=== PATIENT | male | born 1940 | race Caucasian/White ===

== ENCOUNTER → 2017-01-01 | Outpatient (CLI) | payer MEDICARE, BC ==
--- NOTE | 2017-01-01 17:13 | XR ---
EXAMINATION TYPE: XR chest 2V DATE OF EXAM: 01/01/2017 HISTORY: MRI Clearance. REFERENCE: Previous study dated 03/01/2015. FINDINGS: There has been a previous midline sternotomy. The patient's pleural effusion has resolved. Heart size upper limits of normal. There is mild vascula r congestion. There is mild interstitial change. At least part of this is chronic. IMPRESSION: 1. BORDERLINE CARDIOMEGALY. 2. MILD VASCULAR CONGESTION. 3. INTERSTITIAL CHANGE. PART OF THIS IS CHRONIC. I COULD NOT EXCLUDE MILD HEART FAILURE. PLEASE CORRE LATE CLINICALLY.
== END | disposition home or self-care (01) ==
LOC: RADXRMAIN 16:49
PROVIDERS: ATTEND Orthopaedic Surgery
DX: Z01.818 Encounter for other preprocedural examination (principal); I51.7 Cardiomegaly; E11.42 Type 2 diabetes mellitus with diabetic polyneuropathy; J84.9 Interstitial pulmonary disease, unspecified; M79.672 Pain in left foot; M10.9 Gout, unspecified; M21.6X2 Other acquired deformities of left foot; G57.92 Unspecified mononeuropathy of left lower limb; R07.89 Other chest pain; Z98.890 Other specified postprocedural states
CPT/HCPCS: 71020

== ENCOUNTER → 2017-01-07 | Outpatient (CLI) | payer MEDICARE, BC ==
[2017-01-07 09:21] LABS: CH 26.6; CHCM 28.7; HCT 30.7 % (39.0-53.0); HGB 8.9 gm/dL (13.0-17.5); Hypochromasia Marked; MCH 27.1 pg (25.0-35.0); MCHC 29.1 g/dL (31.0-37.0); MCV 93.1 fL (80.0-100.0); Mean Platelet Volume 7.8; Poikilocytosis Slight; RDW 15.2 % (11.5-15.5); WBC 4.3 k/uL (3.8-10.6)
[2017-01-07 10:03] LABS: Anion Gap 15 mmol/L; Blood Urea Nitrogen 21 mg/dL (9-20); Carbon Dioxide 26 mmol/L (22-30); Chloride 103 mmol/L (98-107); Non-African American GFR(MDRD) >60 (>60 ml/min/1.73 sqM); Potassium 4.4 mmol/L (3.5-5.1); Sodium 144 mmol/L (137-145)
== END | disposition home or self-care (01) ==
LOC: LABPAT 08:50
PROVIDERS: ATTEND Internal Medicine Interventional Cardiology
DX: Z01.812 Encounter for preprocedural laboratory examination (principal); I35.0 Nonrheumatic aortic (valve) stenosis
CPT/HCPCS: 36415; 80051; 82565; 84520; 85027

== ENCOUNTER → 2017-05-19 | Outpatient (CLI) | payer MEDICARE, BC ==
[2017-05-19 12:22] LABS: Anion Gap 16 mmol/L; Blood Urea Nitrogen 22 mg/dL (9-20); Calcium 9.9 mg/dL (8.4-10.2); Carbon Dioxide 27 mmol/L (22-30); Chloride 101 mmol/L (98-107); Glucose 181 mg/dL (74-99); Potassium 4.4 mmol/L (3.5-5.1); Sodium 144 mmol/L (137-145)
[2017-05-19 12:27] LABS: Anisocytosis Slight; Basophils % (A) 1 %; Eosinophils # (A) 0.2 k/uL (0-0.7); Eosinophils % (A) 4 %; HCT 34.5 % (39.0-53.0); Hypochromasia Slight; Lymphocytes # (A) 0.5 k/uL (1.0-4.8); Lymphocytes % (A) 15 %; MCH 30.2 pg (25.0-35.0); MCHC 31.9 g/dL (31.0-37.0); MCV 94.8 fL (80.0-100.0); Macrocytosis Slight; Mean Platelet Volume 7.6; Monocytes # (A) 0.2 k/uL (0-1.0); Monocytes % (A) 6 %; Neutrophils # (A) 2.7 k/uL (1.3-7.7); Neutrophils % (A) 73 %; RBC 3.64 m/uL (4.30-5.90); RDW 19.4 % (11.5-15.5); WBC 3.7 k/uL (3.8-10.6)
[2017-05-19 14:38] LABS: Platelet Count 82 k/uL (150-450)
[2017-05-19 14:40] LABS: Mixed Population RBC Present; Polychromasia Present
[2017-05-19 14:41] LABS: Poikilocytosis (M) Present
[2017-05-19 14:42] LABS: RBC Fragments Present
== END | disposition home or self-care (01) ==
LOC: LABWHC1 11:24
PROVIDERS: ATTEND Internal Medicine Cardiovascular Disease
DX: I34.0 Nonrheumatic mitral (valve) insufficiency (principal)
CPT/HCPCS: 36415; 80048; 83880; 85025

== ENCOUNTER → 2017-07-07 | Outpatient (CLI) | payer MEDICARE, BC ==
[2017-07-07 12:58] LABS: Appearance,Urine Clear (Clear); Bilirubin,Urine Negative (Negative); Blood,Urine Negative (Negative); Color,Urine Yellow; Glucose,Urine (UA) Negative (Negative); Hyaline Casts,Urine 1 /lpf (0-2); Ketones,Urine Negative (Negative); Leukocyte Esterase,Urine Negative (Negative); Mucus,Urine Rare /hpf; Nitrite,Urine Negative (Negative); PH, Urine 6.5 (5.0-8.0); Protein,Urine 1+ (Negative); RBC,Urine 3 /hpf (0-5); Specific Gravity,Urine 1.021 (1.001-1.035); WBC,Urine 1 /hpf (0-5)
[2017-07-07 13:00] LABS: INR 3.3 (<1.2); Prothrombin Time 29.3 sec (9.0-12.0)
[2017-07-07 13:03] LABS: Basophils % (A) 1 %; Eosinophils # (A) 0.2 k/uL (0-0.7); Eosinophils % (A) 4 %; HCT 33.1 % (39.0-53.0); HGB 10.7 gm/dL (13.0-17.5); Hypochromasia Slight; Lymphocytes # (A) 0.5 k/uL (1.0-4.8); Lymphocytes % (A) 14 %; MCH 31.5 pg (25.0-35.0); MCHC 32.2 g/dL (31.0-37.0); MCV 97.8 fL (80.0-100.0); Mean Platelet Volume 8.1; Monocytes # (A) 0.3 k/uL (0-1.0); Monocytes % (A) 7 %; Neutrophils # (A) 2.9 k/uL (1.3-7.7); Neutrophils % (A) 73 %; RBC 3.38 m/uL (4.30-5.90); RDW 15.3 % (11.5-15.5)
[2017-07-07 13:10] LABS: Albumin 4.1 g/dL (3.5-5.0); Chloride 102 mmol/L (98-107); Glucose 133 mg/dL (74-99); Potassium 4.5 mmol/L (3.5-5.1); Sodium 146 mmol/L (137-145)
[2017-07-07 13:11] LABS: AST 29 U/L (17-59); Alkaline Phosphatase 74 U/L (38-126); Anion Gap 15 mmol/L; Blood Urea Nitrogen 18 mg/dL (9-20); Calcium 10.1 mg/dL (8.4-10.2); Carbon Dioxide 29 mmol/L (22-30); Magnesium 1.9 mg/dL (1.6-2.3); Total Bilirubin 0.9 mg/dL (0.2-1.3)
[2017-07-07 13:24] LABS: Platelet Count 85 k/uL (150-450)
[2017-07-07 13:39] LABS: ALT 39 U/L (21-72)
== END | disposition home or self-care (01) ==
LOC: LABWHC1 12:18
PROVIDERS: ATTEND Internal Medicine Cardiovascular Disease
DX: I05.9 Rheumatic mitral valve disease, unspecified (principal); I50.9 Heart failure, unspecified
CPT/HCPCS: 36415; 80053; 81001; 83735; 83880; 85025; 85610

== ENCOUNTER → 2017-08-14 | Outpatient (CLI) | payer MEDICARE, BC ==
[2017-08-14 15:30] LABS: Basophils % (A) 0 %; Eosinophils # (A) 0.1 k/uL (0-0.7); Eosinophils % (A) 2 %; HCT 34.3 % (39.0-53.0); HGB 10.7 gm/dL (13.0-17.5); Hypochromasia Marked; Lymphocytes # (A) 0.6 k/uL (1.0-4.8); Lymphocytes % (A) 10 %; MCH 30.5 pg (25.0-35.0); MCHC 31.2 g/dL (31.0-37.0); MCV 97.8 fL (80.0-100.0); Mean Platelet Volume 7.2; Monocytes # (A) 0.4 k/uL (0-1.0); Monocytes % (A) 6 %; Neutrophils # (A) 4.4 k/uL (1.3-7.7); Neutrophils % (A) 79 %; Platelet Count 107 k/uL (150-450); RDW 14.8 % (11.5-15.5); WBC 5.5 k/uL (3.8-10.6)
[2017-08-14 15:37] LABS: Calcium 9.5 mg/dL (8.4-10.2); Potassium 4.6 mmol/L (3.5-5.1)
== END | disposition home or self-care (01) ==
LOC: LABWHC1 14:51
PROVIDERS: ATTEND Internal Medicine Cardiovascular Disease
DX: I50.33 Acute on chronic diastolic (congestive) heart failure (principal)
CPT/HCPCS: 36415; 80048; 83880; 85025

== ENCOUNTER 2017-09-05 21:32 | Emergency (ER) | payer MEDICARE, BC ==
[2017-09-05 21:39] VITALS: TEMP 98.1
[2017-09-05] MEDS ORDERED: PANTOPRAZOLE 40 MG/10 ML VIAL IVP STA (21:53)
[2017-09-05] MEDS ORDERED: cefTRIAXone IN SWFI 1,000 MG/10 ML SYRINGE IVP STA (21:55)
--- NOTE | 2017-09-05 22:00 | ED ---
General Adult HPI - General Chief complaint: GI Bleed Stated complaint: Rectal Bleeding Time Seen by Provider: 09/05/17 21:44 Source: patient, RN notes reviewed, old records reviewed Mode of arrival: ambulatory Limitations: no limitations - History of Present Illness Initial comments: 77-year-old male presents with bright red rectal bleeding. Bleeding began this evening patient has had several episodes of bright red blood with bowel movements. Patient has a known history of esophageal varices with banding 3 days prior at [facility]. He was instructed to present to the emergency department with any rectal bleeding. Patient denies any complaints, no lightheadedness, no chest pain, no abdominal pain. He does have abdominal ascites and distention. He receives intermittent paracentesis this. He was previously on Coumadin for history of A. fib, however this has been discontinued secondary to procedure and concern for bleeding. Patient has mitral valve disease status post clipping at [facility]. He is currently being worked up for liver disease. No history of alcoholism. No history of fever. - Related Data Home Medications Medication Instructions Recorded Confirmed Aspirin 81 mg PO DAILY 03/27/14 03/19/17 Multivitamins, Thera [Multivitamin 1 each PO DAILY 03/27/14 03/19/17 (formulary)] Beclomethasone Dip 80 Mcg/Puff 1 puff INHALATION HS 01/19/17 03/19/17 [Qvar 80 mcg] Doxazosin [Cardura] 2 mg PO HS 01/19/17 03/19/17 Losartan [Cozaar] 50 mg PO HS 01/19/17 03/19/17 Metoprolol Tartrate [Lopressor] 25 mg PO BID 01/19/17 03/19/17 Warfarin [Coumadin] 3 mg PO MOTHSA 01/19/17 03/19/17 Warfarin [Coumadin] 4.5 mg PO SUTUWEFR 01/19/17 03/19/17 metFORMIN HCL [Glucophage] 1,000 mg PO BID 03/17/17 03/19/17 sitaGLIPtin [Januvia] 100 mg PO DAILY 03/17/17 03/19/17 Previous Rx's Medication Instructions Recorded Atorvastatin [Lipitor] 40 mg PO HS #30 tab 05/08/14 Furosemide [Lasix] 40 mg PO DAILY #20 tab 05/08/14 Allergies Allergy/AdvReac Type Severity Reaction Status Date / Time Iodinated Contrast- Oral and Allergy topical Verified 09/05/17 21:39 IV Dye iodine [Iodinated Contrast Media - made his IV Dye] hands break out adhesive AdvReac "skin Verified 09/05/17 21:39 comes off" Review of Systems ROS Statement: Those systems with pertinent positive or pertinent negative responses have been documented in the HPI. ROS Other: All systems not noted in ROS Statement are negative. Past Medical History Past Medical History: Atrial Fibrillation, Cancer, Diabetes Mellitus, GERD/ Reflux, Hypertension, Myocardial Infarction ([place]), Osteoarthritis (OA), Pneumonia , Skin Disorder Additional Past Medical History / Comment(s): melanoma skin cancer, Last Myocardial Infarction Date:: 03/23/14 History of Any Multi-Drug Resistant Organisms: None Reported Past Surgical History: Coronary Bypass/CABG, Heart Catheterization, Hernia Repair, Orthopedic Surgery, Tonsillectomy Additional Past Surgical History / Comment(s): raquel cataracts, left shoulder surgery, surgery to "correct hernia surgery" at [facility] Past Anesthesia/Blood Transfusion Reactions: No Reported Reaction Past Psychological History: No Psychological Hx Reported Smoking Status: Former smoker Past Alcohol Use History: None Reported Past Drug Use History: None Reported - Past Family History Mother Family Medical History: Cancer Daughter(s) Family Medical History: Cancer Father Family Medical History: Myocardial Infarction ([place]) General Exam Limitations: no limitations General appearance: alert, in no apparent distress Head exam: Present: atraumatic, normocephalic Eye exam: Present: normal appearance, PERRL, scleral icterus (mild) Neck exam: Present: normal inspection. Absent: tenderness, meningismus Respiratory exam: Present: normal lung sounds bilaterally. Absent: respiratory distress Cardiovascular Exam: Present: regular rate, irregular rhythm GI/Abdominal exam: Present: soft, distended, other (Positive fluid wave). Absent: tenderness Rectal exam: Present: bloody stool. Absent: hemorrhoids, mass, tenderness Extremities exam: Present: normal inspection Neurological exam: Present: alert, oriented X3. Absent: motor sensory deficit Psychiatric exam: Present: normal affect, normal mood Skin exam: Present: warm, dry, intact Course Vital Signs 09/05/17 09/05/17 09/05/17 21:37 22:00 22:35 Temperature 98.1 F Pulse Rate 84 78 74 Respiratory 18 17 17 Rate Blood Pressure 99/62 104/57 108/55 O2 Sat by Pulse 97 100 99 Oximetry 09/05/17 22:57 Temperature Pulse Rate 74 Respiratory 17 Rate Blood Pressure 117/57 O2 Sat by Pulse 100 Oximetry EKG Findings - EKG Comments: EKG Findings:: EKG: Atrial fibrillation, rate of 76, respiratory rate axis, T- wave inversion in lateral precordium and inferior leads, no ST segment elevation. QRS duration 78, QTC 373. Medical Decision Making - Medical Decision Making 77-year-old male with known history of esophageal varices and recent banding presents with rectal bleeding. On exam patient has significant abdominal distention and ascites. He does have borderline hypotension initial blood pressure 99 systolic. Other vitals are stable. He is Bright red rectal bleeding. No external hemorrhoids. Laboratory studies are obtained, he does have stable hemoglobin of 12.9 BLEEDING just began prior to arrival, this may be inaccurately elevated. White blood cell count, mildly elevated INR of 1.3. Creatinine is 2.58, most recent in our system is 1.0. This represents acute renal failure. Potassium level is 5.4 which is mildly elevated. This will be treated with normal saline at 75 an hour. I do not want to over hydrate this patient as there is concern for active bleeding and I do not want to worsen his coagulopathy. He is given Protonix, octreotide and ceftriaxone in the emergency department. Case discussed with Sajan Schumacher, patient will be transferred by EMS. Accepting physician Dr. Zamora Diagnosis: Rectal bleeding, concern for bleeding esophageal varices. - Lab Data Result diagrams: 09/05/17 22:04 09/05/17 22:04 Lab Results 09/05/17 09/05/17 09/05/17 Range/Units 22:04 22:04 22:04 WBC 9.8 (3.8-10.6) k/uL RBC 4.10 L (4.30-5.90) m/uL Hgb 12.9 L (13.0-17.5) gm/dL Hct 39.8 (39.0-53.0) % MCV 97.1 (80.0-100.0) fL MCH 31.4 (25.0-35.0) pg MCHC 32.3 (31.0-37.0) g/dL RDW 17.0 H (11.5-15.5) % Plt Count 79 L (150-450) k/uL Neutrophils % 87 % Lymphocytes % 6 % Monocytes % 5 % Eosinophils % 1 % Basophils % 0 % Neutrophils # 8.5 H (1.3-7.7) k/uL Lymphocytes # 0.6 L (1.0-4.8) k/uL Monocytes # 0.5 (0-1.0) k/uL Eosinophils # 0.1 (0-0.7) k/uL Basophils # 0.0 (0-0.2) k/uL Manual Slide Review Performed Hypochromasia Slight Poikilocytosis (manual Present Anisocytosis Slight Macrocytosis Slight PT 12.1 H (9.0-12.0) sec INR 1.3 H (<1.2) APTT 22.5 (22.0-30.0) sec Sodium 141 (137-145) mmol/L Potassium 5.4 H (3.5-5.1) mmol/L Chloride 101 (98-107) mmol/L Carbon Dioxide 21 L (22-30) mmol/L Anion Gap 19 mmol/L BUN 59 H (9-20) mg/dL Creatinine 2.58 H (0.66-1.25) mg/dL Est GFR (CKD-EPI)AfAm 27 (>60 ml/min/1.73 sqM) Est GFR (CKD-EPI)NonAf 23 (>60 ml/min/1.73 sqM) Glucose 158 H (74-99) mg/dL Calcium 9.9 (8.4-10.2) mg/dL Magnesium 2.0 (1.6-2.3) mg/dL Total Bilirubin 0.7 (0.2-1.3) mg/dL AST 36 (17-59) U/L ALT 45 (21-72) U/L Alkaline Phosphatase 68 (38-126) U/L Total Protein 6.5 (6.3-8.2) g/dL Albumin 4.0 (3.5-5.0) g/dL Blood Type Blood Type Recheck Antibody Screen Spec Expiration Date 09/05/17 Range/Units 22:04 WBC (3.8-10.6) k/uL RBC (4.30-5.90) m/uL Hgb (13.0-17.5) gm/dL Hct (39.0-53.0) % MCV (80.0-100.0) fL MCH (25.0-35.0) pg MCHC (31.0-37.0) g/dL RDW (11.5-15.5) % Plt Count (150-450) k/uL Neutrophils % % Lymphocytes % % Monocytes % % Eosinophils % % Basophils % % Neutrophils # (1.3-7.7) k/uL Lymphocytes # (1.0-4.8) k/uL Monocytes # (0-1.0) k/uL Eosinophils # (0-0.7) k/uL Basophils # (0-0.2) k/uL Manual Slide Review Hypochromasia Poikilocytosis (manual Anisocytosis Macrocytosis PT (9.0-12.0) sec INR (<1.2) APTT (22.0-30.0) sec Sodium (137-145) mmol/L Potassium (3.5-5.1) mmol/L Chloride (98-107) mmol/L Carbon Dioxide (22-30) mmol/L Anion Gap mmol/L BUN (9-20) mg/dL Creatinine (0.66-1.25) mg/dL Est GFR (CKD-EPI)AfAm (>60 ml/min/1.73 sqM) Est GFR (CKD-EPI)NonAf (>60 ml/min/1.73 sqM) Glucose (74-99) mg/dL Calcium (8.4-10.2) mg/dL Magnesium (1.6-2.3) mg/dL Total Bilirubin (0.2-1.3) mg/dL AST (17-59) U/L ALT (21-72) U/L Alkaline Phosphatase (38-126) U/L Total Protein (6.3-8.2) g/dL Albumin (3.5-5.0) g/dL Blood Type AB Negative Blood Type Recheck No Antibody Screen NEGATIVE Spec Expiration Date 09/08/2017 - 2303 Critical Care Time Critical Care Time: Yes Total Critical Care Time: 35 Disposition Clinical Impression: Hematochezia, Esophageal varices Disposition: OTHER INSTITUTION NOT DEFINED Condition: Serious Is patient prescribed a controlled substance at d/c from ED?: No Referrals: Valdemar Velasquez MD [Primary Care Provider] - 1-2 days Time of Disposition: 22:55 - Out of Hospital Transfer - Req. Specs Out of Hospital Transfer - Requested Specifics: Other Emergency Center ( Transfer to [facility] in [place])
[2017-09-05] MEDS ORDERED: PANTOPRAZOLE 40 MG/10 ML VIAL IVP ONE (22:01)
[2017-09-05] MEDS ORDERED: PANTOPRAZOLE 80 MG in SODIUM CHLORIDE 0.9% 100 ML IVPB ONE (22:15)
[2017-09-05 22:27] LABS: Anisocytosis Slight; Basophils % (A) 0 %; Eosinophils # (A) 0.1 k/uL (0-0.7); Eosinophils % (A) 1 %; HCT 39.8 % (39.0-53.0); HGB 12.9 gm/dL (13.0-17.5); Hypochromasia Slight; Lymphocytes # (A) 0.6 k/uL (1.0-4.8); Lymphocytes % (A) 6 %; MCH 31.4 pg (25.0-35.0); MCHC 32.3 g/dL (31.0-37.0); MCV 97.1 fL (80.0-100.0); Macrocytosis Slight; Mean Platelet Volume 7.3; Monocytes # (A) 0.5 k/uL (0-1.0); Monocytes % (A) 5 %; Neutrophils # (A) 8.5 k/uL (1.3-7.7); Neutrophils % (A) 87 %; WBC 9.8 k/uL (3.8-10.6)
[2017-09-05 22:36] LABS: INR 1.3 (<1.2); Partial Thromboplastin Time 22.5 sec (22.0-30.0); Prothrombin Time 12.1 sec (9.0-12.0)
[2017-09-05 22:38] LABS: Calcium 9.9 mg/dL (8.4-10.2); Potassium 5.4 mmol/L (3.5-5.1); Total Bilirubin 0.7 mg/dL (0.2-1.3); Total Protein 6.5 g/dL (6.3-8.2)
[2017-09-05 22:41] LABS: Platelet Count 79 k/uL (150-450); Poikilocytosis (M) Present
[2017-09-05] MEDS ORDERED: SODIUM CHLORIDE 0.9% 1,000 ML IV SCH (23:00)
[2017-09-05] MEDS ORDERED: OCTREOTIDE 100 MCG/ML INJ IVP STA (23:05)
[2017-09-05] MEDS ORDERED: OCTREOTIDE 200 MCG in SODIUM CHLORIDE 0.9% 100 ML IV ONE (23:09)
[2017-09-05 23:36] LABS: Lactic Acid, Venous 4.6 mmol/L (0.7-2.0)
[2017-09-06 00:33] VITALS: BP 123/65; PULSE 70; RESP 17
== END 2017-09-06 00:35 | disposition other institution (70) ==
LOC: EC 21:32
DX: K92.1 Melena (principal); I85.00 Esophageal varices without bleeding; D72.829 Elevated white blood cell count, unspecified; I48.91 Unspecified atrial fibrillation; E11.9 Type 2 diabetes mellitus without complications; I10 Essential (primary) hypertension; I25.2 Old myocardial infarction; Z87.891 Personal history of nicotine dependence; Z85.820 Personal history of malignant melanoma of skin; Z95.1 Presence of aortocoronary bypass graft; Z95.818 Presence of other cardiac implants and grafts; Z79.01 Long term (current) use of anticoagulants; Z79.82 Long term (current) use of aspirin; Z79.84 Long term (current) use of oral hypoglycemic drugs; Z79.899 Other long term (current) drug therapy; Z91.048 Other nonmedicinal substance allergy status; Z91.041 Radiographic dye allergy status; Z53.8 Procedure and treatment not carried out for other reasons
CPT/HCPCS: 36415; 93005; 86900; 86901; 80053; 82140; 83605; 83735; 85025; 85610; 85730; 86850; 99291; 96365; 96367; 96375 ×2; J2354 ×2; J0696; C9113

== ENCOUNTER → 2017-09-17 | Outpatient (CLI) | payer MEDICARE, BC ==
[2017-09-17 13:19] LABS: Mean Platelet Volume 7.5; Platelet Count 86 k/uL (150-450)
[2017-09-17 13:21] LABS: INR 1.3 (<1.2); Prothrombin Time 12.3 sec (9.0-12.0)
== END | disposition home or self-care (01) ==
LOC: LABWHC1 12:34
PROVIDERS: ATTEND Internal Medicine Geriatric Medicine
DX: I10 Essential (primary) hypertension (principal); I48.91 Unspecified atrial fibrillation
CPT/HCPCS: 36415; 82565; 85049; 85610

== ENCOUNTER 2017-09-18 11:44 | Day surgery (SDC) | payer MEDICARE, BC ==
[2017-09-18 12:34] VITALS: RESP 16; TEMP 97.7
[2017-09-18] MEDS: ALBUMIN HUMAN 25% 50 ML in EMPTY BAG 1 BAG IVPB SCH ×4 (13:46→14:30)
[2017-09-18 14:53] VITALS: BP 135/67; PULSE 63
--- NOTE | 2017-09-18 15:48 | US ---
Therapeutic paracentesis. DATE OF EXAM: 09/18/2017 CLINICAL HISTORY: Ascites The procedure was discussed with the patient. The risks, complications, benefits, and alternatives we re discussed and any questions were answered. Informed consent was obtained. The patient was placed s upine on the ultrasound table and prepped and draped in the usual sterile fashion. All elements of maximal barrier technique were utilized. Under ultrasound guidance, access into the right lower quadrant was obtained, via the paracentesis catheter system and direct ultrasound guidanc e. Approximately 8.9 liters of straw-colored fluid was removed. The patient was stable throughout the pr ocedure and remained stable upon discharge from Department of Radiology. IMPRESSION: Successful therapeutic paracentesis under ultrasound guidance.
== END 2017-09-18 15:10 | disposition home or self-care (01) ==
LOC: RADPROMAIN 11:44
PROVIDERS: ATTEND Internal Medicine Geriatric Medicine
DX: R18.8 Other ascites (principal); K76.1 Chronic passive congestion of liver; Z79.01 Long term (current) use of anticoagulants; Z79.82 Long term (current) use of aspirin
CPT/HCPCS: 96365; 36415; 49083; P9047

== ENCOUNTER 2017-09-23 07:41 | Emergency (ER) | payer MEDICARE, BC ==
--- NOTE | 2017-09-23 13:03 | XR ---
EXAMINATION TYPE: XR chest 2V DATE OF EXAM: 09/23/2017 CLINICAL HISTORY: History of heart surgery with chest pain. TECHNIQUE: Frontal and lateral views of the chest are obtained. COMPARISON: Prior chest x-ray January 01, 2017 FINDINGS: Sternal wires and mediastinal clips are redemonstrated. There is metallic aortic valve red emonstrated. There is new metallic density or clip or surgical device in the posterior inferior aspec t of heart just inferior to metallic aortic valve of uncertain etiology, correlate clinically. Some e ventration of right hemidiaphragm is redemonstrated. There is no focal air space opacity, pleural eff usion, or pneumothorax seen. The cardiac silhouette size is stable and within normal limits. Bridgin g osteophytes in the mid thoracic spine are redemonstrated on lateral view. IMPRESSION: No acute pulmonary process. Interval cardiac surgical change versus intracardiac metalli c foreign body, correlate clinically.
--- NOTE | 2017-09-23 13:04 | XR ---
EXAMINATION TYPE: XR abdomen 1V DATE OF EXAM: 09/23/2017 10:16 AM CLINICAL HISTORY: Abdominal distention. History of paracentesis performed 5 days earlier. TECHNIQUE: Two Upright KUB images of the abdomen are obtained. COMPARISON: CT abdomen and pelvis March 05, 2012. FINDINGS: Scattered gas is seen in non-distended small bowel loops. Gas and fecal material is seen in non-distended colon. Right-sided pelvic phleboliths are seen. There is multilevel spurring in the sp ine. There is mild to moderate joint space loss and spurring in both hips. No pneumoperitoneum is pre sent. Lung bases are grossly clear. IMPRESSION: Overall nonobstructive bowel gas pattern.
[2017-09-23 13:22] LABS: Anisocytosis Slight; Basophils % (A) 0 %; Eosinophils # (A) 0.1 k/uL (0-0.7); Eosinophils % (A) 1 %; HCT 41.1 % (39.0-53.0); HGB 13.4 gm/dL (13.0-17.5); Lymphocytes # (A) 0.5 k/uL (1.0-4.8); Lymphocytes % (A) 5 %; MCH 31.2 pg (25.0-35.0); MCHC 32.6 g/dL (31.0-37.0); MCV 95.7 fL (80.0-100.0); Macrocytosis Slight; Mean Platelet Volume 8.3; Monocytes # (A) 0.6 k/uL (0-1.0); Monocytes % (A) 6 %; Neutrophils % (A) 87 %; Platelet Count 116 k/uL (150-450); RDW 17.6 % (11.5-15.5); WBC 10.3 k/uL (3.8-10.6)
[2017-09-23 13:30] LABS: INR 1.3 (<1.2); Prothrombin Time 12.2 sec (9.0-12.0)
[2017-09-23 14:59] LABS: Albumin 3.9 g/dL (3.5-5.0); Calcium 10.1 mg/dL (8.4-10.2); Magnesium 2.4 mg/dL (1.6-2.3); Total Bilirubin 0.9 mg/dL (0.2-1.3); Total Protein 6.6 g/dL (6.3-8.2)
[2017-09-23 15:05] LABS: Creatine Kinase MB 2.1 ng/mL (0.0-2.4); Troponin I 0.019 ng/mL (0.000-0.034)
[2017-09-23 15:20] LABS: Potassium 6.3 mmol/L (3.5-5.1)
== END 2017-09-23 12:15 | disposition home or self-care (01) ==
LOC: EC 07:41
DX: E86.0 Dehydration (principal); K72.90 Hepatic failure, unspecified without coma; R18.8 Other ascites; Z91.048 Other nonmedicinal substance allergy status; W19.XXXA Unspecified fall, initial encounter
CPT/HCPCS: 36415; 71046; 74018; 80053; 82140; 82150; 82550; 82553; 83690; 83735; 84484; 85025; 85610; 96361; 96374; 99285

== ENCOUNTER → 2017-12-17 | Outpatient (CLI) | payer MEDICARE, BC ==
[2017-12-17 12:31] LABS: Basophils % (A) 1 %; Eosinophils # (A) 0.1 k/uL (0-0.7); Eosinophils % (A) 2 %; HCT 39.4 % (39.0-53.0); HGB 12.7 gm/dL (13.0-17.5); INR 1.2 (<1.2); Lymphocytes # (A) 0.5 k/uL (1.0-4.8); Lymphocytes % (A) 7 %; MCHC 32.2 g/dL (31.0-37.0); MCV 96.3 fL (80.0-100.0); Mean Platelet Volume 7.2; Monocytes # (A) 0.4 k/uL (0-1.0); Monocytes % (A) 6 %; Neutrophils # (A) 6.6 k/uL (1.3-7.7); Neutrophils % (A) 84 %; Prothrombin Time 11.3 sec (9.0-12.0); RDW 14.7 % (11.5-15.5); WBC 7.8 k/uL (3.8-10.6)
[2017-12-17 12:46] LABS: Albumin 3.8 g/dL (3.5-5.0); Calcium 9.3 mg/dL (8.4-10.2); Potassium 4.3 mmol/L (3.5-5.1); Total Bilirubin 1.1 mg/dL (0.2-1.3)
[2017-12-17 14:34] LABS: Platelet Count 85 k/uL (150-450)
== END | disposition home or self-care (01) ==
LOC: LABWHC1 11:36
PROVIDERS: ATTEND Internal Medicine Transplant Hepatology
DX: R18.8 Other ascites (principal)
CPT/HCPCS: 36415; 80053; 85025; 85610

== ENCOUNTER 2018-09-09 07:21 | Emergency (ER) | payer MEDICARE, BC ==
[2018-09-09 07:28] VITALS: BP 114/74; PULSE 105; RESP 18; TEMP 97.6
[2018-09-09] MEDS ORDERED: MORPHINE SULFATE 4 MG/ML SYRINGE IM STA (07:45)
--- NOTE | 2018-09-09 07:49 | ED ---
Fall HPI - General Chief Complaint: Fall Stated Complaint: Fall Time Seen by Provider: 09/09/18 07:32 Source: patient, family, RN notes reviewed, old records reviewed Mode of arrival: wheelchair - History of Present Illness Initial Comments: Patient is a 70-year-old male presents emergency department today with 2 falls this week. Patient reported that he fell on Thursday night getting out of the shower. He landed on his right head, caused abrasions over his right arm and complaint of right ankle pain. Patient reports that he was able to ambulate after. Today he slipped out of bed and fell on his right hip again. He states his pain is an 8 out of 10. He had difficulty with ambulation. Patient has a history of cirrhosis, kidney failure. He follows with a GI doctor and Sajan Schumacher. He has scheduled paracentesis weekly. Patient states that he had no head injury or loss of consciousness today. - Related Data Home Medications Medication Instructions Recorded Confirmed Aspirin 81 mg PO DAILY 03/27/14 09/18/17 Multivitamins, Thera [Multivitamin 1 each PO DAILY 03/27/14 09/15/17 (formulary)] Beclomethasone Dip 80 Mcg/Puff 1 puff INHALATION HS 01/19/17 09/18/17 [Qvar 80 mcg] Doxazosin [Cardura] 2 mg PO HS 01/19/17 09/15/17 Metoprolol Tartrate [Lopressor] 25 mg PO BID 01/19/17 09/15/17 metFORMIN HCL [Glucophage] 1,000 mg PO BID 03/17/17 09/15/17 sitaGLIPtin [Januvia] 100 mg PO DAILY 03/17/17 09/15/17 Digoxin [Lanoxin] 125 mcg PO DAILY 09/15/17 09/15/17 Montelukast [Singulair] 10 mg PO HS 09/15/17 09/15/17 Pantoprazole Sodium 40 mg PO DAILY 09/15/17 09/18/17 Previous Rx's Medication Instructions Recorded Atorvastatin [Lipitor] 40 mg PO HS #30 tab 05/08/14 Acetaminophen with Codeine 1 tab PO Q6H PRN 3 Days #12 tab 09/09/18 [Tylenol w/codeine #3] Allergies Allergy/AdvReac Type Severity Reaction Status Date / Time Iodinated Contrast- Oral and Allergy topical Verified 09/18/17 12:52 IV Dye iodine [Iodinated Contrast Media - made his IV Dye] hands break out adhesive AdvReac "skin Verified 09/18/17 12:52 comes off" Review of Systems ROS Statement: Those systems with pertinent positive or pertinent negative responses have been documented in the HPI. ROS Other: All systems not noted in ROS Statement are negative. Past Medical History Past Medical History: Atrial Fibrillation, Cancer, Diabetes Mellitus, GERD/Reflux, Hypertension, Myocardial Infarction ([place]), Osteoarthritis (OA), Pneumonia, Skin Disorder Additional Past Medical History / Comment(s): melanoma skin cancer, Last Myocardial Infarction Date:: 03/23/14 History of Any Multi-Drug Resistant Organisms: None Reported Past Surgical History: Cardiac Valve Replacement, Coronary Bypass/CABG, Heart Catheterization, Hernia Repair, Orthopedic Surgery, Tonsillectomy Additional Past Surgical History / Comment(s): raquel cataracts, left shoulder surgery, surgery to "correct hernia surgery" at [facility], aortic heart valve, and mitral valve, past paracentesis, esophageal varcies banding, Past Anesthesia/Blood Transfusion Reactions: No Reported Reaction Additional Past Anesthesia/Blood Transfusion Reaction / Comment(s): bld transfusion in past with heart surgery Past Psychological History: No Psychological Hx Reported Smoking Status: Never smoker Past Alcohol Use History: None Reported Past Drug Use History: None Reported - Past Family History Mother Family Medical History: Cancer Daughter(s) Family Medical History: Cancer Father Family Medical History: Myocardial Infarction ([place]) General Exam - General Exam Comments Initial Comments: This is a 78-year-old male. Alert and oriented 3. Limitations: no limitations General appearance: alert, in no apparent distress Head exam: Present: atraumatic, normocephalic, normal inspection Eye exam: Present: normal appearance, PERRL, EOMI. Absent: scleral icterus, conjunctival injection, periorbital swelling ENT exam: Present: normal exam, mucous membranes moist Neck exam: Present: normal inspection. Absent: tenderness, meningismus, lymphadenopathy Respiratory exam: Present: normal lung sounds bilaterally. Absent: respiratory distress, wheezes, rales, rhonchi, stridor Cardiovascular Exam: Present: regular rate, normal rhythm, normal heart sounds. Absent: systolic murmur, diastolic murmur, rubs, gallop, clicks GI/Abdominal exam: Present: soft, normal bowel sounds. Absent: distended, tenderness, guarding, rebound, rigid Extremities exam: Present: normal inspection, full ROM, normal capillary refill, other (Contusion and minor abrasion over the right hip.). Absent: tenderness, pedal edema, joint swelling, calf tenderness Back exam: Present: normal inspection Neurological exam: Present: alert, oriented X3, CN II-XII intact Psychiatric exam: Present: normal affect, normal mood Course Vital Signs 09/09/18 07:25 Temperature 97.6 F Pulse Rate 105 H Respiratory 18 Rate Blood Pressure 114/74 O2 Sat by Pulse 100 Oximetry Medical Decision Making - Medical Decision Making 78 year old male presents with right hip pain after fall from bed today, he had previous fall this week. He has multiple contusion over arm and hip. Patient has full range of motion of hte hip, and all extremity. Patient reported painwith ambulation, xray is undiagnostic for fracture. CT hip was completed shows no fracture. Patient will be treated at this time for hip contusion adn arthriits with shourt course of pain medication. He suffers from cirrhosis and renal disease. Discussed patient follow up with ortho and PCP. - Radiology Data Radiology results: report reviewed CT of the hip shows no acute fracture dislocation. X-ray shows nearly nondiagnostic assessment. No obvious fracture. Arthropathy noted. Heterogeneous patchy appearance of the osseous structures with the on the basis of metastatic disease correlating with bone scan. Suspect contrast overlying the upper pelvis. No definitive acute fracture dislocation. Symptoms persist "out of 10 days of the wrist just. Diffuse soft tissue edema correlated clinically. Large calcaneal spurs. Disposition Clinical Impression: Fall, Contusion, hip, Multiple contusions Disposition: HOME SELF-CARE Condition: Good Instructions (If sedation given, give patient instructions): Fall Prevention for Older Adults (ED) Additional Instructions: Patient has helped with primary care doctor and cardiology specialist. Return to emergency department if any alarming signs or symptoms occur. Prescriptions: Acetaminophen with Codeine [Tylenol w/codeine #3] 1 tab PO Q6H PRN 3 Days #12 tab PRN Reason: Pain Is patient prescribed a controlled substance at d/c from ED?: No Referrals: Valdemar Velasquez MD [Primary Care Provider] - 1-2 days Time of Disposition: 10:13
--- NOTE | 2018-09-09 08:14 | XR ---
EXAMINATION TYPE: XR ankle complete RT DATE OF EXAM: 09/09/2018 COMPARISON: NONE HISTORY: Pain FINDINGS: Three views of the ankle demonstrate the ankle mortise to be intact and symmetric. The joint spaces are preserved. The osseous structures are intact. Surgical clips in the soft tissues. Diffuse soft tissue edema. Large calcaneal spurs noted and there are vascular calcifications. IMPRESSION: 1. No definite acute fracture or dislocation, if symptoms persist follow-up study in 7 to 10 days wou ld be suggested. 2. Diffuse soft tissue edema correlate clinically. 3. Large calcaneal spurs.
--- NOTE | 2018-09-09 08:17 | XR ---
EXAMINATION TYPE: XR Hip RT and AP Pelvis DATE OF EXAM: 09/09/2018 COMPARISON: NONE HISTORY: Pain TECHNIQUE: A single AP view of the pelvis is obtained. Two views of the right hip are obtained. FINDINGS: Exam is severely limited due to technique. Sclerotic changes involving the pubic rami and p sandip is nonspecific correlate for history of malignancy. Arthropathy of the IMPRESSION: 1. Nearly nondiagnostic assessment. No obvious acute fracture. Arthropathy noted. Heterogeneous patch y appearance to the osseous structures may be on the basis of metastatic disease correlate with bone scan. Hip. Suspected contrast overlying the upper pelvis yields in nondiagnostic assessment of portio ns of the pelvis.
--- NOTE | 2018-09-09 09:09 | CT ---
EXAMINATION TYPE: CT hip RT wo con DATE OF EXAM: 09/09/2018 COMPARISON: Pelvic and right hip x-ray earlier today HISTORY: Fall x2 injury with pain CT DLP: 258.2 mGycm Automated exposure control for dose reduction was used. FINDINGS: Osseous structures are demineralized. No acute fracture or dislocation in the right hip is present. T here is mild axial joint space loss with moderate acetabular spurring and subchondral cystic change. Pubic symphysis is intact. There is partial visualization of moderate to severe pelvic ascites. Patient has history of cirrhosis and prior paracentesis noted September 18, 2017. A few sigmoid colonic diverticula are present. Central c alcifications are seen in prostate gland measuring upper limits of normal in size bulging on bladder base. No suspicious right groin adenopathy or hernia. Muscle bulk right thigh is maintained. Small vessel a rterial vascular calcification is noted. IMPRESSION: No acute fracture or dislocation in the right hip.
[2018-09-09] MEDS ORDERED: ACET/COD 300 MG/30 MG STARTER PACK 6 TAB BTL PO STA (10:12)
== END 2018-09-09 10:22 | disposition home or self-care (01) ==
LOC: EC 07:21
DX: S70.01XA Contusion of right hip, initial encounter (principal); M16.11 Unilateral primary osteoarthritis, right hip; M77.31 Calcaneal spur, right foot; I48.91 Unspecified atrial fibrillation; E11.9 Type 2 diabetes mellitus without complications; K21.9 Gastro-esophageal reflux disease without esophagitis; I10 Essential (primary) hypertension; I25.2 Old myocardial infarction; Z79.82 Long term (current) use of aspirin; Z79.84 Long term (current) use of oral hypoglycemic drugs; Z79.899 Other long term (current) drug therapy; Z91.041 Radiographic dye allergy status; Z91.048 Other nonmedicinal substance allergy status; Z85.828 Personal history of other malignant neoplasm of skin; Z95.1 Presence of aortocoronary bypass graft; Z95.4 Presence of other heart-valve replacement; W06.XXXA Fall from bed, initial encounter; Y92.003 Bedroom of unspecified non-institutional (private) residence as the place of occurrence of the external cause
CPT/HCPCS: 73502; 73610; 73700; 99284; 96372; J2270

== ENCOUNTER → 2018-09-13 | Outpatient (CLI) | payer MEDICARE, BC ==
[2018-09-13 11:55] LABS: Partial Thromboplastin Time 23.9 sec (22.0-30.0); Prothrombin Time 10.8 sec (9.0-12.0)
== END | disposition home or self-care (01) ==
LOC: LABWHC1 11:18
PROVIDERS: ATTEND Radiology Diagnostic Radiology
DX: R18.8 Other ascites (principal)
CPT/HCPCS: 36415; 85610; 85730